=== PATIENT | male | born 1990 | race Caucasian/White ===

== ENCOUNTER 2021-11-08 07:37 | Outpatient (CLI) | payer OTHER | END 2021-11-08 07:38 | disposition home or self-care (01) | LOC: CSHULT 07:37 | PROVIDERS: ATTEND Family Medicine | DX: R74.8 Abnormal levels of other serum enzymes (principal); K76.0 Fatty (change of) liver, not elsewhere classified; K76.9 Liver disease, unspecified | CPT/HCPCS: 76700 ==

== ENCOUNTER 2021-11-22 10:38 | Outpatient (CLI) | payer OTHER | END 2021-11-22 10:39 | disposition home or self-care (01) | LOC: CSHMRI 10:38 | PROVIDERS: ATTEND Family Medicine | DX: K76.9 Liver disease, unspecified (principal) | CPT/HCPCS: 74183 ==